=== PATIENT | male | born 1975 | race Caucasian/White ===

== ENCOUNTER 2016-08-24 11:12 | Emergency (ER) | payer MEDICAID ==
[2016-08-24] MEDS ORDERED: IPRATROPIUM/ALBUTEROL 3 ML NEB INH STA (13:39)
[2016-08-24] MEDS ORDERED: IPRATROPIUM/ALBUTEROL 3 ML NEB INH ONE (13:55)
== END 2016-08-24 15:25 | disposition home or self-care (01) ==
DX: J45.909 Unspecified asthma, uncomplicated (principal)
CPT/HCPCS: 87275; 87276; 93005; 93010; 94640; 99283; J7620

== ENCOUNTER 2017-07-03 15:02 | Emergency (ER) | payer MEDICAID ==
[2017-07-03] MEDS ORDERED: BENZONATATE 100 MG CAPSULE PO STA (15:57)
[2017-07-03] MEDS ORDERED: guaiFENesin/DEXTROMETHORPHAN 10 ML UDC PO STA (15:57)
[2017-07-03] MEDS ORDERED: DEXAMETHASONE 10 MG/ML VIAL PO STA (15:57)
--- NOTE | 2017-07-03 16:00 | ED Physician Documentation ---
History of Present Illness - Stated complaint Stated Complaint: FLU - Chief complaint Chief Complaint: Resp - Additonal information Additional information: hx from pt 42 male fairly healthy to ER for cough for 2 months describes waxing and waning sinus congestion, PND, cough worse with laying down , some int wheezing and generally feeling weak and lousy this most recent episode started 4 days ago and includes vomiting as well no travel Review of Systems Constitutional: denies: Fever, Chills Nose: reports: Congestion, Sinus pressure / pain Respiratory: reports: Cough Endocrine: denies: Easy bruising / bleeding Immunocompromised: denies: Immunocompromised PD PAST MEDICAL HISTORY - Past Medical History Cardiovascular: None Neuro: Seizure disorder Endocrine/Autoimmune: None GI: Other HEENT: Other Psych: Depression - Past Surgical History Past Surgical History: Yes General: Cholecystectomy - Present Medications Home Medications: Ambulatory Orders Medication Instructions Recorded Confirmed Albuterol Sulfate [Proair Hfa 2 puffs INH Q4H PRN #1 inhaler 07/03/17 Inhaler] Amox/Clav 875/125 [Augmentin] 1 each PO Q12H #20 tablet 07/03/17 Fluticasone [Flonase] 1 sprays RICA BID PRN #1 bottle 07/03/17 Ibuprofen 07/03/17 Trazodone HCl 100 mg PO 07/03/17 - Allergies Allergies/Adverse Reactions: Allergies Allergy/AdvReac Type Severity Reaction Status Date / Time No Known Drug Allergies Allergy Verified 07/03/17 15:15 - Social History Does the pt smoke?: No Smoking Status: Never smoker Does the pt drink ETOH?: Yes Does the pt have substance abuse?: Yes - Immunizations Immunizations are current?: Yes - POLST Patient has POLST: No PD ED PE NORMAL - Vitals Vital signs reviewed: Yes - General General: Alert and oriented X 3 - HEENT HEENT: PERRL, Pharynx benign, Other (+ sinus TTP s erythema or swelling). No: Ears normal (dull karuna) - Neck Neck: Supple, no meningeal sign - Cardiac Cardiac: RRR - Respiratory Respiratory: No respiratory distress, Other (dec and coarse, wheezes when coughing) - Derm Derm: Normal color - Extremities Extremities: No deformity, No edema - Neuro Neuro: Alert and oriented X 3 Results - Vitals Vitals: Vital Signs - 24 hr 07/03/17 07/03/17 15:13 16:37 Temperature 37.2 C 37.3 C Heart Rate 101 H 90 Respiratory 18 20 Rate Blood Pressure 121/86 H 116/75 O2 Saturation 96 96 Oxygen O2 Source Room air - Labs Labs: Laboratory Tests 07/03/17 16:21 Influenza A (Rapid) Negative Influenza B (Rapid) Negative Influenza Types A,B Ag - - Rads (name of study) CXR Radiology: See rad report (neg) PD MEDICAL DECISION MAKING - ED course ED course: given sx of sinus pressure and PND persisting 2+ months think reasonable to rx ab at this time Departure - Departure Disposition: Home, Self Care Clinical Impression: Sinusitis Qualifiers: Sinusitis location: unspecified location Chronicity: subacute Qualified Code(s) : J01.90 - Acute sinusitis, unspecified Condition: Good Instructions: ED Sinusitis Abx Tx, ED Reactive Airway Disease Follow-Up: Fernie Miller MD [Primary Care Provider] - Prescriptions: Albuterol Sulfate [Proair Hfa Inhaler] 2 puffs INH Q4H PRN #1 inhaler PRN Reason: Shortness Of Air/Wheezing Amox/Clav 875/125 [Augmentin] 1 each PO Q12H #20 tablet Fluticasone [Flonase] 1 sprays RICA BID PRN #1 bottle PRN Reason: congestion Comments: The xray did not show pneumonia The flu swabs were negativeI think your cough is due to a sinus infection with post nasal drainage Many sinus infections are viral but this has been going on so long I think it is reasonable to try antibiotics Also you need to use the decongestant nasal spray Consider trying a sinus irrigation system to flush out the sinuses And I refilled your inhaler
--- NOTE | 2017-07-03 16:29 | XRAY Report ---
EXAM: CHEST RADIOGRAPHY EXAM DATE: 07/03/2017 04:11 PM. CLINICAL HISTORY: Cough X 2 months. COMPARISON: Chest radiographs 06/16/2015. TECHNIQUE: 2 views. FINDINGS: Lungs/Pleura: No focal opacities evident. No pleural effusion. No pneumothorax. Normal volumes. Mediastinum: Heart and mediastinal contours are unremarkable. IMPRESSION: No evidence of acute thoracic process [facility] Referring Provider Line: [phone] SITE ID: [id number]
[2017-07-03 16:38] VITALS: BP 116/75
== END 2017-07-03 17:35 | disposition home or self-care (01) ==
LOC: ED 15:02
DX: J01.90 Acute sinusitis, unspecified (principal)
CPT/HCPCS: 71046; 87275; 87276; 99283; A9270

== ENCOUNTER 2017-10-15 12:24 | Emergency (ER) | payer OTHER, MEDICAID ==
[2017-10-15 12:33] VITALS: BP 140/86
[2017-10-15] MEDS ORDERED: TETANUS/DIPHTHERIA/PERTUSSIS 0.5 ML SYRINGE IM ONE (12:57)
--- NOTE | 2017-10-15 13:03 | ED Physician Documentation ---
PD HPI UPPER EXT INJURY - Stated complaint Stated Complaint: RT MID FINGER LAC - Chief complaint Chief Complaint: Ext Problem - History obtained from History obtained from: Patient - History of Present Illness Location: Right, Finger Type of injury: Laceration Where injury occurred: Work Timing - onset: Today Timing - details: Abrupt onset (broken glass) Review of Systems Constitutional: reports: Reviewed and negative Throat: reports: Reviewed and negative Cardiac: reports: Reviewed and negative PD PAST MEDICAL HISTORY - Past Medical History Past Medical History: Yes Cardiovascular: None Endocrine/Autoimmune: None GI: Other HEENT: Other Psych: Depression - Past Surgical History Past Surgical History: Yes General: Cholecystectomy - Present Medications Home Medications: Ambulatory Orders Medication Instructions Recorded Confirmed Albuterol Sulfate [Proair Hfa 2 puffs INH Q4H PRN #1 inhaler 07/03/17 Inhaler] Trazodone HCl 100 mg PO DAILY PRN 07/03/17 - Allergies Allergies/Adverse Reactions: Allergies Allergy/AdvReac Type Severity Reaction Status Date / Time No Known Drug Allergies Allergy Verified 10/15/17 12:33 - Social History Does the pt smoke?: No Smoking Status: Never smoker Does the pt drink ETOH?: Yes Does the pt have substance abuse?: Yes - Immunizations Immunizations are current?: Yes - POLST Patient has POLST: No PD ED PE NORMAL - Vitals Vital signs reviewed: Yes - General General: Alert and oriented X 3, No acute distress - Extremities Extremities: Other (On the ulnar side of the right middle finger, at the level of the tuft not involving the nailbed there is a 1 cm very shallow Laceration just into the dermis.) - Neuro Neuro: Alert and oriented X 3, Normal speech Results - Vitals Vitals: Vital Signs - 24 hr 10/15/17 12:29 Temperature 36.1 C L Heart Rate 75 Respiratory 16 Rate Blood Pressure 140/86 H O2 Saturation 97 Oxygen O2 Source Room air Procedures - Laceration (location) Right middle finger Length in cm: 1 Wound type: Linear, Superficial Skin layer closure: Dermabond Other: Tetanus booster given Complexity: Simple PD MEDICAL DECISION MAKING - Sepsis Event Vital Signs: Vital Signs - 24 hr 10/15/17 12:29 Temperature 36.1 C L Heart Rate 75 Respiratory 16 Rate Blood Pressure 140/86 H O2 Saturation 97 Oxygen O2 Source Room air Departure - Departure Disposition: 01 Home, Self Care Clinical Impression: Finger laceration Qualifiers: Encounter type: initial encounter Finger: middle finger Damage to nail status: without damage Foreign body presence: without foreign body Laterality: right Qualified Code(s): S61.212A - Laceration without foreign body of right middle finger without damage to nail, initial encounter Condition: Good Record reviewed to determine appropriate education?: Yes Instructions: ED Laceration Hand Comments: Your blood pressure was elevated today on check into the emergency department. This does not mean that you have hypertension, it is a common phenomenon to come to the emergency department and have elevated blood pressure. I recommend that you see your primary care physician within the week to have it rechecked when you are feeling better.
== END 2017-10-15 13:08 | disposition home or self-care (01) ==
LOC: ED 12:24
DX: S61.212A Laceration without foreign body of right middle finger without damage to nail, initial encounter (principal); R03.0 Elevated blood-pressure reading, without diagnosis of hypertension
CPT/HCPCS: 1040M; 12001; 90471; 90715; 99282

== ENCOUNTER 2018-07-12 10:21 | Emergency (ER) | payer MEDICAID ==
[2018-07-12 10:30] VITALS: BP 116/90
--- NOTE | 2018-07-12 11:40 | ED Physician Documentation ---
PD HPI URI - Stated complaint Stated Complaint: FLU LIKE SX - Chief complaint Chief Complaint: General - History obtained from History obtained from: Patient - History of Present Illness Timing - onset: How many days ago (5) Timing duration: Days (5) Timing details: Gradual onset, Still present Associated symptoms: Fever, Chills, Nasal congestion, Rhinorrhea, Sinus pain, Sore throat, Productive cough, Dyspnea Contributing factors: Sick contact Improves by: Rest, Medication Worsened by: Activity Similar symptoms before: Diagnosis (bronchitis) Recently seen: Not recently seen - Additional information Additional information: Previously well 43-year-old male has developed a cough and congestion with fever about 5 days ago. He states the symptoms came on rapidly he thought he had the flu. He was able to go back to work and then he got sick again worse last night and today he is having trouble coughing producing a lot of phlegm and has some shortness of breath with wheezing. He has used an inhaler previously. Review of Systems Constitutional: reports: Fever, Chills, Myalgias, Fatigue Eyes: denies: Decreased vision Ears: denies: Ear pain Nose: reports: Rhinorrhea / runny nose, Congestion Throat: reports: Sore throat Cardiac: denies: Chest pain / pressure, Palpitations Respiratory: reports: Dyspnea, Cough, Wheezing GI: denies: Abdominal Pain, Nausea, Vomiting : denies: Dysuria PD PAST MEDICAL HISTORY - Past Medical History Cardiovascular: None Endocrine/Autoimmune: None GI: Other HEENT: Other Psych: Depression - Past Surgical History Past Surgical History: Yes General: Cholecystectomy - Present Medications Home Medications: Ambulatory Orders Medication Instructions Recorded Confirmed Albuterol Sulfate [Proair Hfa 2 puffs INH Q4H PRN #1 inhaler 07/03/17 Inhaler] Trazodone HCl 100 mg PO DAILY PRN 07/03/17 Albuterol Sulf [Ventolin Hfa 1 - 2 puffs INH Q4HR PRN #1 inhaler 07/12/18 Inhaler] Amox/Clav 875/125 [Augmentin] 1 each PO Q12H #20 tablet 07/12/18 - Allergies Allergies/Adverse Reactions: Allergies Allergy/AdvReac Type Severity Reaction Status Date / Time No Known Drug Allergies Allergy Verified 10/15/17 12:33 - Social History Does the pt smoke?: No Smoking Status: Never smoker Does the pt drink ETOH?: Yes Does the pt have substance abuse?: Yes - Immunizations Immunizations are current?: Yes - POLST Patient has POLST: No PD ED PE NORMAL - Vitals Vital signs reviewed: Yes (tachy and hypertensive mild diastolic ) - General General: Alert and oriented X 3, No acute distress, Well developed/nourished - HEENT HEENT: Atraumatic, PERRL, EOMI, Other (both TM's are inflamed centrally with the right more involved than the left. ) - Neck Neck: Supple, no meningeal sign, No bony TTP - Cardiac Cardiac: RRR, No murmur - Respiratory Respiratory: No respiratory distress, Other (dimished breath sounds bilaterally ) - Abdomen Abdomen: Soft, Non tender - Back Back: No CVA TTP, No spinal TTP - Derm Derm: Normal color, Warm and dry, No rash - Extremities Extremities: No deformity, No edema - Neuro Neuro: Alert and oriented X 3, social worker masters 2-12 intact, No motor deficit, No sensory deficit, Normal speech Eye Opening: Spontaneous Motor: Obeys Commands Verbal: Oriented GCS Score: 15 - Psych Psych: Normal mood, Normal affect Results - Vitals Vitals: Vital Signs - 24 hr 07/12/18 10:26 Temperature 36.7 C Heart Rate 102 H Respiratory 16 Rate Blood Pressure 116/90 H O2 Saturation 96 Oxygen O2 Source Room air - Labs Labs: Laboratory Tests 07/12/18 10:32 Influenza A (Rapid) Negative Influenza B (Rapid) Negative PD MEDICAL DECISION MAKING - ED course Complexity details: considered differential, d/w patient ED course: 43-year-old male with a history of illness that appears to be bimodal likely had influenza his influenza screen now is negative he does have secondary infection which appears to be otitis media. He is administered dexamethasone 10 mg orally we will place him on some Augmentin and give him an inhaler. Departure - Departure Disposition: 01 Home, Self Care Clinical Impression: Otitis media Qualifiers: Otitis media type: suppurative Chronicity: acute Laterality: bilateral Recurrence: not specified as recurrent Spontaneous tympanic membrane rupture: without spontaneous rupture Qualified Code(s): H66.003 - Acute suppurative otitis media without spontaneous rupture of ear drum, bilateral Condition: Stable Instructions: ED Otitis Media Acute Adult Follow-Up: Donavan Ambriz PA-C [Primary Care Provider] - Prescriptions: Albuterol Sulf [Ventolin Hfa Inhaler] 1 - 2 puffs INH Q4HR PRN #1 inhaler PRN Reason: Shortness Of Air/Wheezing Amox/Clav 875/125 [Augmentin] 1 each PO Q12H #20 tablet Forms: Activity restrictions
== END 2018-07-12 11:50 | disposition home or self-care (01) ==
LOC: ED 10:21
DX: H66.003 Acute suppurative otitis media without spontaneous rupture of ear drum, bilateral (principal)
CPT/HCPCS: 87275; 87276; 99283

== ENCOUNTER 2020-04-28 05:07 | Emergency (ER) | payer SELFPAY ==
[2020-04-28 05:36] VITALS: BP 144/84
--- NOTE | 2020-04-28 07:18 | ED Physician Documentation ---
PD HPI LOWER EXT INJURY - Stated complaint Stated Complaint: RT ANKLE INJ - Chief complaint Chief Complaint: Trauma Ext - History obtained from History obtained from: Patient - Additional information Additional information: Patient comes emergency department for chief complaint of L foot and ankle pain and swelling after a twisting injury yesterday. Patient states that he has injured this foot and ankle many times and was hoping that he would feel better today but he felt worse. He states that when he tried to walk on his left lower extremity, it was too painful to bear weight. Patient denies any other injuries. No other complaints at this time. Review of Systems Ten Systems: 10 systems reviewed and negative Constitutional: reports: Reviewed and negative Eyes: reports: Reviewed and negative Ears: reports: Reviewed and negative Nose: reports: Reviewed and negative Throat: reports: Reviewed and negative Cardiac: reports: Reviewed and negative Respiratory: reports: Reviewed and negative GI: reports: Reviewed and negative : reports: Reviewed and negative Skin: reports: Reviewed and negative Musculoskeletal: reports: Joint pain, Joint swelling, Pain with weight bearing Neurologic: reports: Reviewed and negative Psychiatric: reports: Reviewed and negative Endocrine: reports: Reviewed and negative Immunocompromised: reports: Reviewed and negative PD PAST MEDICAL HISTORY - Past Medical History Past Medical History: Yes Cardiovascular: None Endocrine/Autoimmune: None GI: Other HEENT: Other Psych: Depression - Past Surgical History Past Surgical History: Yes General: Cholecystectomy - Present Medications Home Medications: Ambulatory Orders Medication Instructions Recorded Confirmed HYDROcod/ACETAM 5/325 [[place] 5/325] 1 - 2 ea PO Q6H PRN #15 tablet 04/28/20 - Allergies Allergies/Adverse Reactions: Allergies Allergy/AdvReac Type Severity Reaction Status Date / Time No Known Drug Allergies Allergy Verified 04/28/20 05:34 - Social History Does the pt smoke?: No Smoking Status: Never smoker Does the pt drink ETOH?: Yes Does the pt have substance abuse?: Yes - Immunizations Immunizations are current?: Yes - POLST Patient has POLST: No PD ED PE NORMAL - Vitals Vital signs reviewed: Yes - General General: Alert and oriented X 3, No acute distress, Other (Moderately obese, tall man in no apparent distress) - HEENT HEENT: Atraumatic, PERRL, EOMI, Moist mucous membranes - Neck Neck: Supple, no meningeal sign - Cardiac Cardiac: Strong equal pulses - Respiratory Respiratory: No respiratory distress - Derm Derm: Warm and dry - Extremities Extremities: No deformity, Other (Mild edema over the distal lateral malleolus extending over the talofibular ligament area and the proximal fifth metatarsal of the left foot. Moderate tenderness to palpation over the same area. No deformity. No medial tenderness or swelling.) - Neuro Neuro: Alert and oriented X 3 - Psych Psych: Normal mood, Normal affect Results - Vitals Vitals: Vital Signs - 24 hr 04/28/20 05:14 Temperature 36.6 C Heart Rate 93 Respiratory 20 Rate Blood Pressure 144/84 H O2 Saturation 98 Oxygen O2 Source Room air - Rads (name of study) L ankle XR Radiology: Final report received, EMP read indepedently, See rad report L foot XR Radiology: EMP read indepedently, See rad report PD MEDICAL DECISION MAKING - ED course Complexity details: reviewed results, re-evaluated patient, considered differential, d/w patient ED course: Patient was worked up with x-rays of the ankle and foot. The ankle x-ray was read as negative by the radiologist. The official reading of the foot x-ray is pending at the time of this dictation. However, no obvious fracture was noted. Patient does have a bony fragment that appears to be well calcified with rounded edges at the proximal end of his fifth metatarsal. Given the patient's stated history of multiple injuries and fractures to this area, this is most likely related to old injuries and does not appear acute. The patient has been placed in a postoperative shoe and given a pair of crutches. We have discussed that he should remain nonweightbearing until his foot is feeling better. I given him a work note. He is declined any medication beyond ibuprofen and Tylenol. We have discussed icing and elevating and indications for follow-up. We have also discussed the usual indications for return. Departure - Departure Disposition: 01 Home, Self Care Clinical Impression: Foot sprain Qualifiers: Encounter type: initial encounter Laterality: left Qualified Code(s): S93.602A - Unspecified sprain of left foot, initial encounter Condition: Stable Instructions: ED Sprain Foot Prescriptions: HYDROcod/ACETAM 5/325 [[place] 5/325] 1 - 2 ea PO Q6H PRN #15 tablet PRN Reason: Pain Comments: Your ankle x-ray looks good. Your foot x-ray shows what appears to be an old break that has since calcified and rounded over. In his left a small, free- floating piece of bone, but this does not appear to be freshly broken. Most likely, you have sprained your foot/ankle. You may use the crutches as needed and the cast shoe as needed, as well. You may take ibuprofen and Tylenol as needed for pain. If you need something stronger, please use the medication prescribed in place of the Tylenol. You should prop your foot up and use ice to help with the swelling. Please follow-up with your primary care physician if you are not feeling noticeably better in the next couple of weeks. Forms: Activity restrictions
--- NOTE | 2020-04-28 08:16 | XRAY Report ---
PROCEDURE: Foot 3 View LT INDICATIONS: injury/pain/swelling TECHNIQUE: 3 views of the foot were acquired. COMPARISON: 12/02/2012 ankle plain film on the left reviewed. FINDINGS: Bones: No fractures or dislocations. There is a large accessory ossicle at the lateral base of the fifth metatarsal bone, present on prior chest plain film faintly visualized on the lateral view in [place] 2013 No suspicious bony lesions. Soft tissues: No tibiotalar joint effusion. Achilles tendon appears normal. IMPRESSION: No acute trauma found. Largest sensory ossicle lateral base of the fifth metatarsal bone. Reviewed by: Edward Kohler MD on 04/28/2020 8:15 AM PST Approved by: Edward Kohler MD on 04/28/2020 8:15 AM PST Station ID: [id number]
--- NOTE | 2020-04-28 08:18 | XRAY Report ---
PROCEDURE: Ankle 3 View LT INDICATIONS: injury/pain TECHNIQUE: 3 views of the ankle were acquired. COMPARISON: 12/02/2012 ankle plain film. FINDINGS: Bones: No fractures or dislocations. Ankle mortise is normally aligned. No suspicious bony lesions . Soft tissues: No tibiotalar joint effusion. Achilles tendon appears normal. IMPRESSION: No acute trauma found. Accessory ossicle as discussed. Reviewed by: Edward Kohler MD on 04/28/2020 8:16 AM [facility] Approved by: Edward Kohler MD on 04/28/2020 8:16 AM [facility] Station ID: [id number]
== END 2020-04-28 07:57 | disposition home or self-care (01) ==
LOC: ED 05:07
DX: S93.602A Unspecified sprain of left foot, initial encounter (principal); X50.1XXA Overexertion from prolonged static or awkward postures, initial encounter; Y93.E9 Activity, other interior property and clothing maintenance
CPT/HCPCS: 99283; 99284

== ENCOUNTER 2020-11-17 12:03 | Emergency (ER) | payer SELFPAY ==
--- NOTE | 2020-11-17 13:38 | XRAY Report ---
PROCEDURE: Chest 2 View X-Ray INDICATIONS: cough fever TECHNIQUE: 2 view(s) of the chest. COMPARISON: None. FINDINGS: Surgical changes and devices: None. Lungs and pleura: No pleural effusions or pneumothorax. Lungs are clear. Mediastinum: Mediastinal contours are normal. Heart size is normal. Bones and chest wall: No suspicious bony abnormalities. Soft tissues appear unremarkable. IMPRESSION: No acute cardiopulmonary disease process. Reviewed by: Celina Tay MD, PhD on 11/17/2020 1:37 PM PDT Approved by: Celina Tay MD, PhD on 11/17/2020 1:37 PM PDT Station ID: [id number]
[2020-11-17] MEDS ORDERED: SODIUM CHLORIDE 0.9% 1,000 ML IV STA (14:13)
--- NOTE | 2020-11-17 14:16 | ED Physician Documentation ---
History of Present Illness - Stated complaint Stated Complaint: FEVER,BODY ACHES - Chief complaint Chief Complaint: Resp - History obtained from History obtained from: Patient - Additonal information Additional information: Patient comes emergency department chief complaint of sore throat, fever, dry cough, and nasal congestion, with body aches for the last 3 days. Patient states that he began to notice sore throat 3 days ago, and that this progressed to fever which has been as high as 103.6 at home. Patient states that other family members at home are sick with something similar, though he does not know if they have had fevers. Patient states he had a tibdit immunization back in September. Patient denies nausea vomiting. No abdominal pain. No diarrhea. No dysuria or back pain. No other complaints at this time. Review of Systems Ten Systems: 10 systems reviewed and negative Constitutional: reports: Fever, Chills, Myalgias, Fatigue Eyes: reports: Reviewed and negative Ears: reports: Reviewed and negative Nose: reports: Rhinorrhea / runny nose, Congestion Throat: reports: Sore throat Cardiac: reports: Reviewed and negative Respiratory: reports: Cough GI: reports: Reviewed and negative : reports: Reviewed and negative Skin: reports: Reviewed and negative Musculoskeletal: reports: Reviewed and negative Neurologic: reports: Reviewed and negative Psychiatric: reports: Reviewed and negative Endocrine: reports: Reviewed and negative Immunocompromised: reports: Reviewed and negative PD PAST MEDICAL HISTORY - Past Medical History Cardiovascular: None Endocrine/Autoimmune: None GI: Other HEENT: Other Psych: Depression - Past Surgical History Past Surgical History: Yes General: Cholecystectomy - Present Medications Home Medications: Ambulatory Orders Medication Instructions Recorded Confirmed HYDROcod/ACETAM 5/325 [[place] 5/325] 1 - 2 ea PO Q6H PRN #15 tablet 04/28/20 - Allergies Allergies/Adverse Reactions: Allergies Allergy/AdvReac Type Severity Reaction Status Date / Time No Known Drug Allergies Allergy Verified 11/17/20 12:32 - Social History Does the pt smoke?: No Smoking Status: Never smoker Does the pt drink ETOH?: Yes Does the pt have substance abuse?: Yes - Immunizations Immunizations are current?: Yes - POLST Patient has POLST: No PD ED PE NORMAL - Vitals Vital signs reviewed: Yes - General General: Alert and oriented X 3, No acute distress, Well developed/nourished, Other (Morbidly obese) - HEENT HEENT: Atraumatic, PERRL, EOMI, Moist mucous membranes - Neck Neck: Supple, no meningeal sign - Cardiac Cardiac: RRR, No murmur - Respiratory Respiratory: No respiratory distress, Clear bilaterally - Abdomen Abdomen: Soft, Non tender, Non distended - Derm Derm: Normal color, Warm and dry, No rash - Extremities Extremities: No deformity, No edema - Neuro Neuro: Alert and oriented X 3, hygiene coordinator 2-12 intact, Normal speech, Other (Grossly normal.) - Psych Psych: Normal mood, Normal affect Results - Vitals Vitals: Vital Signs - 24 hr 11/17/20 11/17/20 12:27 16:19 Temperature 36.7 C Heart Rate 93 75 Respiratory 18 16 Rate Blood Pressure 128/84 H 130/81 H O2 Saturation 97 97 Oxygen O2 Source Room air - Labs Labs: Laboratory Tests 11/17/20 11/17/20 11/17/20 14:22 14:22 14:35 WBC 5.3 RBC 5.24 Hgb 15.8 Hct 47.8 MCV 91.2 MCH 30.2 MCHC 33.1 RDW 13.4 Plt Count 243 MPV 9.6 Neut # (Auto) 2.8 Lymph # (Auto) 1.8 [place] # (Auto) 0.6 Eos # (Auto) 0.1 Baso # (Auto) 0.1 Absolute Nucleated RBC 0.00 Nucleated RBC % 0.0 Sodium 138 Potassium 3.3 L Chloride 101 Carbon Dioxide 27 Anion Gap 10.0 BUN 16 Creatinine 1.1 Estimated GFR (MDRD) 72 L Glucose 141 H Calcium 9.0 Total Bilirubin 0.9 AST 71 H ALT 85 H Alkaline Phosphatase 60 Total Protein 8.1 Albumin 4.7 Globulin 3.4 Albumin/Globulin Ratio 1.4 Lipase 27 Nasal Adenovirus (PCR) NOT DETECTED Nasal B. parapertussis DNA (PCR) NOT DETECTED Nasal Coronavir 229E PCR NOT DETECTED Nasal Coronavir HKU1 PCR NOT DETECTED Nasal Coronavir NL63 PCR NOT DETECTED Nasal Coronavir OC43 PCR NOT DETECTED Nasal Enterovir/Rhinovir PCR NOT DETECTED Nasal Influenza B PCR NOT DETECTED Nasal Influenza A PCR NOT DETECTED Nasal Parainfluen 1 PCR NOT DETECTED Nasal Parainfluen 2 PCR NOT DETECTED Nasal Parainfluen 3 PCR NOT DETECTED Nasal Parainfluen 4 PCR NOT DETECTED Nasal RSV (PCR) NOT DETECTED Nasal B.pertussis DNA PCR NOT DETECTED Nasal C.pneumoniae (PCR) NOT DETECTED Teddy Human Metapneumo PCR NOT DETECTED Nasal M.pneumoniae (PCR) NOT DETECTED Nasal SARS-CoV-2 (PCR) DETECTED A - Rads (name of study) cxr Radiology: Final report received, EMP read indepedently, See rad report (neg) PD MEDICAL DECISION MAKING - ED course Complexity details: reviewed results, re-evaluated patient, considered differential, d/w patient ED course: Patient was worked up with chest x-ray, labs, blood cultures, and respiratory PCR panel. Patient was found to be positive for Covid. He was treated with a dose of Regeneron IV and we have discussed the need for every when he lives with to quarantine and get tested. I discussed with the patient that he will need to take a couple weeks off work and quarantine until then or until his symptoms have resolved. We have discussed home management of symptoms and the usual indications for return. Departure - Departure Disposition: 01 Home, Self Care Clinical Impression: COVID Condition: Stable Instructions: COVID-19 [facility] Comments: Your viral panel came back positive for Covid. You have been given IV fluids as well as an IV infusion of monoclonal antibodies to help fight the virus. There is a small chance of still getting sick with Covid, even after getting vaccinated and with the [employer] vaccine, there is a little bit larger chance than with some of the other vaccines. Most likely, you will not have as serious of a course of illness as you may have without the vaccine. However, if you begin to feel increasingly ill, especially if you are feeling increasingly short of breath, then you should seek medical reevaluation right away. Otherwise drink plenty of fluids and take ibuprofen and Tylenol as needed for your fever. You should quarantine for 2 weeks or until you are feeling better. Your family members who live with you will need to quarantine for 7 days at least. If after this, they are still negative for Covid, then they may proceed with life as usual, as long as they do not have symptoms. Forms: Activity restrictions Discharge Date/Time: 11/17/20 16:55
[2020-11-17 14:34] LABS: BASOPHILS # (AUTO) 0.1 10^3/uL (0.0-0.1); BASOPHILS % (AUTO) 1.1 %; EOSINOPHILS # (AUTO) 0.1 10^3/uL (0.0-0.7); EOSINOPHILS % (AUTO) 1.1 %; HCT - HEMATOCRIT 47.8 % (42.0-52.0); HGB - HEMOGLOBIN 15.8 g/dL (14.0-18.0); LYMPHOCYTES # (AUTO) 1.8 10^3/uL (1.5-3.5); LYMPHOCYTES % (AUTO) 33.8 %; MEAN CORPUSCULAR HEMOGLOBIN 30.2 pg (27.0-31.0); MEAN CORPUSCULAR HGB CONC 33.1 g/dL (32.0-36.0); MEAN CORPUSCULAR VOLUME 91.2 fL (80.0-94.0); MEAN PLATELET VOLUME 9.6 fL (7.4-11.4); MONOCYTES # (AUTO) 0.6 10^3/uL (0.0-1.0); MONOCYTES % (AUTO) 11.6 %; NEUTROPHILS # (AUTO) 2.8 10^3/uL (1.5-6.6); NEUTROPHILS % (AUTO) 52.2 %; PLT - PLATELET COUNT 243 10^3/uL (130-450); RED BLOOD COUNT 5.24 10^6/uL (4.70-6.10); RED CELL DISTRIBUTION WIDTH 13.4 % (12.0-15.0); WHITE BLOOD COUNT 5.3 x10^3/uL (4.8-10.8)
[2020-11-17 14:45] LABS: ALBUMIN 4.7 g/dL (3.2-5.5); ALBUMIN/GLOBULIN RATIO 1.4 (1.0-2.2); BILIRUBIN,TOTAL 0.9 mg/dL (0.2-1.0); CREATININE 1.1 mg/dL (0.6-1.2); POTASSIUM 3.3 mmol/L (3.5-5.0); TOTAL PROTEIN 8.1 g/dL (6.7-8.2)
[2020-11-17 15:31] LABS: CORONAVIRUS 229E-RESP PCR NOT DETECTED; CORONAVIRUS HKU1-RESP PCR NOT DETECTED; CORONAVIRUS NL63-RESP PCR NOT DETECTED; CORONAVIRUS OC43-RESP PCR NOT DETECTED
[2020-11-17 15:32] LABS: B. PARAPERTUSSIS- RESP PCR PAN NOT DETECTED; B. PERTUSSIS- RESP PCR PANEL NOT DETECTED; C. PNEUMONIAE- RESP PCR PANEL NOT DETECTED; HUMAN METAPNEUMOVIRUS NOT DETECTED; INFLUENZA A- RESP PCR PANEL NOT DETECTED; INFLUENZA B - RESP PCR PANEL NOT DETECTED; M. PNEUMONIAE- RESP PCR PANEL NOT DETECTED; PARAINFLUENZA VIRUS 1 NOT DETECTED; PARAINFLUENZA VIRUS 2 NOT DETECTED; PARAINFLUENZA VIRUS 3 NOT DETECTED; PARAINFLUENZA VIRUS 4 NOT DETECTED; RHINOVIRUS/ENTEROVIRUS NOT DETECTED; RSV- RESP PCR PANEL NOT DETECTED; SARS-CoV-2 -RESP PCR PANEL DETECTED
[2020-11-17] MEDS ORDERED: [UNRECOGNIZED DRUG - OTHER] IV STA (15:43)
[2020-11-17 16:20] VITALS: BP 130/81
== END 2020-11-17 16:55 | disposition home or self-care (01) ==
LOC: ED 12:03
DX: U07.1 COVID-19 (principal); Z23 Encounter for immunization
CPT/HCPCS: 0202U; 36415; 71046; 80053; 83690; 85025; 87040; 99284; J7040; M0243; Q0243

== ENCOUNTER 2021-02-04 08:58 | Emergency (ER) | payer OTHER ==
--- NOTE | 2021-02-04 09:20 | ED Physician Documentation ---
PD HPI HEADACHE - Stated complaint Stated Complaint: LOSS OF VISION IN R EYE/HEADACHE - Chief complaint Chief Complaint: Neuro - History obtained from History obtained from: Patient - History of Present Illness Timing - onset: Last night Timing - onset during: Rest Timing - duration: Hours (10) Timing - details: Gradual onset, Still present Worst headache ever?: No: Worst headache ever? (onset headache right temporal and behind eye last night that persists into today. Was able to sleep with some stirring during night. Awoke with headache still this morning and noted right eye vision to be diminished/blurred (can see image and whiteness). No loss of vision (blackened) per se.) Location: Right Quality: Throbbing, Aching, Tightness Associated symptoms: Nausea, Vision changes (right eye diminished (images vaguely and whitish coloring, with light sensitivity).). No: Fever, Stiff neck, Vomiting Worsened by: Light Contributing factors: No: Anticoagulated, Recent illness, Trauma Similar symptoms before: Diagnosis (has had similar headaches without visual changes about once every 2 months the past year or so. Presumed migraines but no formal Dx nor evaluation.) Recently seen: Not recently seen Review of Systems Constitutional: denies: Fever, Chills Eyes: reports: Decreased vision, Photophobia. denies: Loss of vision, Irritation Nose: denies: Rhinorrhea / runny nose, Congestion Throat: denies: Sore throat Respiratory: denies: Cough GI: denies: Abdominal Pain, Nausea, Vomiting Skin: denies: Rash, Lesions Neurologic: reports: Headache. denies: Focal weakness, Numbness, Altered mental status, Head injury PD PAST MEDICAL HISTORY - Past Medical History Cardiovascular: None Neuro: Migraines Endocrine/Autoimmune: None GI: Other HEENT: Other Psych: Depression - Past Surgical History Past Surgical History: Yes General: Cholecystectomy - Present Medications Home Medications: Ambulatory Orders Medication Instructions Recorded Confirmed SUMAtriptan [Imitrex] 25 mg PO Q6H PRN #5 tablet 02/04/21 dexAMETHasone [Decadron] 4 mg PO DAILY #5 tablet 02/04/21 - Allergies Allergies/Adverse Reactions: Allergies Allergy/AdvReac Type Severity Reaction Status Date / Time No Known Drug Allergies Allergy Verified 02/04/21 09:01 - Social History Does the pt smoke?: No Smoking Status: Never smoker Does the pt drink ETOH?: Yes Does the pt have substance abuse?: Yes - Immunizations Immunizations are current?: Yes - POLST Patient has POLST: No PD ED PE NORMAL - Vitals Vital signs reviewed: Yes - General General: Alert and oriented X 3, No acute distress, Well developed/nourished - HEENT HEENT: PERRL, EOMI, Moist mucous membranes, Pharynx benign, Other (IOP is 16, normal range. Fundal exam is normal. anterior and posterior chambers are clear. ) - Neck Neck: Supple, no meningeal sign, No adenopathy - Cardiac Cardiac: RRR, No murmur - Respiratory Respiratory: Clear bilaterally - Derm Derm: Normal color, Warm and dry, No rash - Neuro Neuro: Alert and oriented X 3, talent acquisition partner 2-12 intact, No motor deficit, No sensory deficit, Normal speech, Other Results - Vitals Vitals: Vital Signs - 24 hr 02/04/21 02/04/21 02/04/21 09:03 11:43 12:10 Temperature 36.1 C L 36.9 C Heart Rate 80 74 78 Respiratory 18 20 14 Rate Blood Pressure 128/86 H 138/90 H 124/83 H O2 Saturation 96 98 98 Oxygen O2 Source Room air - Labs Labs: Laboratory Tests 02/04/21 02/04/21 02/04/21 10:08 10:08 10:08 WBC 5.7 RBC 4.97 Hgb 15.5 Hct 45.2 MCV 90.9 MCH 31.2 H MCHC 34.3 RDW 13.2 Plt Count 286 MPV 9.1 Neut # (Auto) 2.6 Lymph # (Auto) 2.2 [place] # (Auto) 0.4 Eos # (Auto) 0.3 Baso # (Auto) 0.1 Absolute Nucleated RBC 0.00 Nucleated RBC % 0.0 ESR 4 Sodium 142 Potassium 3.8 Chloride 109 Carbon Dioxide 25 Anion Gap 8.0 BUN 15 Creatinine 0.8 Estimated GFR (MDRD) 105 Glucose 143 H Calcium 9.5 Total Bilirubin 0.8 AST 35 ALT 44 Alkaline Phosphatase 68 Total Protein 7.5 Albumin 4.4 Globulin 3.1 Albumin/Globulin Ratio 1.4 Lipase 29 - Rads (name of study) head CT Radiology: Prelim report reviewed (normal), See rad report PD MEDICAL DECISION MAKING - ED course Complexity details: reviewed results, re-evaluated patient (headache much better and vision mostly cleared with IV fluids, toradol, compazine targeting migraine.), considered differential (seems likely complex migraine. Consider ICH, mass effect, eye process such as acute glaucoma. ), d/w patient Departure - Departure Disposition: 01 Home, Self Care Clinical Impression: Right-sided headache, Visual changes Migraine Qualifiers: Migraine type: unspecified Status migrainosus presence: without status migrainosus Intractability: not intractable Qualified Code(s): G43.909 - Migraine, unspecified, not intractable, without status migrainosus Condition: Stable Record reviewed to determine appropriate education?: Yes Instructions: ED Headache Migraine Prescriptions: dexAMETHasone [Decadron] 4 mg PO DAILY #5 tablet SUMAtriptan [Imitrex] 25 mg PO Q6H PRN #5 tablet PRN Reason: Migraine Comments: Like a complex migraine with vision changes. Home and rest today and stay well- hydrated. Follow-up with your primary care regarding any further medications or evaluation should you have frequent migraines in the future. If you get a subsequent migraine, you can try combination of ibuprofen along with ondansetron and a migraine medicine called sumatriptan. I wrote prescriptions for these for you to try. Discharge Date/Time: 02/04/21 12:12
[2021-02-04] MEDS ORDERED: SODIUM CHLORIDE 0.9% 1,000 ML IV STA (09:55)
[2021-02-04] MEDS ORDERED: PROCHLORPERAZINE 10 MG/2 ML VIAL IVP STA (09:55)
[2021-02-04] MEDS ORDERED: KETOROLAC 30 MG/ML VIAL IVP STA (09:55)
[2021-02-04 10:16] LABS: BASOPHILS # (AUTO) 0.1 10^3/uL (0.0-0.1); BASOPHILS % (AUTO) 1.2 %; EOSINOPHILS # (AUTO) 0.3 10^3/uL (0.0-0.7); EOSINOPHILS % (AUTO) 5.8 %; HCT - HEMATOCRIT 45.2 % (42.0-52.0); HGB - HEMOGLOBIN 15.5 g/dL (14.0-18.0); LYMPHOCYTES # (AUTO) 2.2 10^3/uL (1.5-3.5); LYMPHOCYTES % (AUTO) 39.4 %; MEAN CORPUSCULAR HEMOGLOBIN 31.2 pg (27.0-31.0); MEAN CORPUSCULAR HGB CONC 34.3 g/dL (32.0-36.0); MEAN CORPUSCULAR VOLUME 90.9 fL (80.0-94.0); MEAN PLATELET VOLUME 9.1 fL (7.4-11.4); MONOCYTES # (AUTO) 0.4 10^3/uL (0.0-1.0); MONOCYTES % (AUTO) 7.4 %; NEUTROPHILS # (AUTO) 2.6 10^3/uL (1.5-6.6); PLT - PLATELET COUNT 286 10^3/uL (130-450); RED BLOOD COUNT 4.97 10^6/uL (4.70-6.10); RED CELL DISTRIBUTION WIDTH 13.2 % (12.0-15.0); WHITE BLOOD COUNT 5.7 x10^3/uL (4.8-10.8)
[2021-02-04 10:30] LABS: ALBUMIN 4.4 g/dL (3.2-5.5); ALBUMIN/GLOBULIN RATIO 1.4 (1.0-2.2); BILIRUBIN,TOTAL 0.8 mg/dL (0.2-1.0); CALCIUM 9.5 mg/dL (8.5-10.3); CREATININE 0.8 mg/dL (0.6-1.2); POTASSIUM 3.8 mmol/L (3.5-5.0); TOTAL PROTEIN 7.5 g/dL (6.7-8.2)
--- NOTE | 2021-02-04 11:03 | CT Report ---
PROCEDURE: HEAD WO INDICATIONS: right headache and visual change TECHNIQUE: Noncontrast 4.5 mm thick angled axial sections acquired from the foramen magnum to the vertex. For r adiation dose reduction, the following was used: automated exposure control, adjustment of mA and/or kV according to patient size. COMPARISON: None. FINDINGS: Image quality: Excellent. CSF spaces: Basal cisterns are patent. No extra-axial fluid collections. Ventricles are normal in size and shape. Brain: No midline shift. No intracranial masses or hemorrhage. Lawson-white matter interface is norm al. Skull and face: Calvarium and visualized facial bones are intact, without suspicious lesions. Sinuses: Visualized sinuses and mastoids are clear. IMPRESSION: 1. No acute intracranial process. Reviewed by: Kaitlyn Wynne MD on 02/04/2021 11:02 AM PDT Approved by: Kaitlyn Wynne MD on 02/04/2021 11:02 AM PDT Station ID: [id number]
[2021-02-04 12:12] VITALS: BP 124/83
== END 2021-02-04 12:12 | disposition home or self-care (01) ==
LOC: ED 08:58
DX: G43.909 Migraine, unspecified, not intractable, without status migrainosus (principal); H53.141 Visual discomfort, right eye
CPT/HCPCS: 36415; 80053; 83690; 85025; 85651; 96374; 99284

== ENCOUNTER 2021-03-17 08:44 | Emergency (ER) | payer OTHER ==
--- NOTE | 2021-03-17 09:16 | ED Physician Documentation ---
History of Present Illness - Stated complaint Stated Complaint: BACK PX - Chief complaint Chief Complaint: Back Pain - History obtained from History obtained from: Patient - History of Present Illness Timing: How many days ago (3) Pain level max: 8 Pain level now: 7 - Additonal information Additional information: Patient is a 46-year-old male with low back pain. Ongoing for the past 3 days. It started when he stepped out of his truck and felt a sharp pain across his back. Worse with movement, better with rest. Took Motrin without relief yesterday. No numbness or tingling. No loss of bowel or bladder control. No fevers. No chills. Review of Systems Constitutional: denies: Fever, Chills Respiratory: denies: Cough GI: denies: Abdominal Pain, Nausea, Vomiting, Diarrhea : denies: Dysuria Skin: denies: Rash Musculoskeletal: denies: Neck pain Neurologic: denies: Headache PD PAST MEDICAL HISTORY - Past Medical History Cardiovascular: None Respiratory: None Neuro: Migraines Endocrine/Autoimmune: None GI: Other : None HEENT: Other Psych: Depression Musculoskeletal: None Derm: None - Past Surgical History Past Surgical History: Yes General: Cholecystectomy - Present Medications Home Medications: Ambulatory Orders Medication Instructions Recorded Confirmed HYDROcod/ACETAM 5/325 [[place] 5/325] 1 - 2 ea PO Q6H PRN #14 tablet 03/17/21 Meloxicam [Mobic] 15 mg PO DAILY PRN #20 tablet 03/17/21 methocarbamoL [Robaxin] 500 mg PO Q6H PRN #20 tablet 03/17/21 - Allergies Allergies/Adverse Reactions: Allergies Allergy/AdvReac Type Severity Reaction Status Date / Time No Known Drug Allergies Allergy Verified 03/17/21 08:55 - Social History Does the pt smoke?: No Smoking Status: Never smoker Does the pt drink ETOH?: Yes Does the pt have substance abuse?: Yes - Immunizations Immunizations are current?: Yes - POLST Patient has POLST: No PD ED PE NORMAL - Vitals Vital signs reviewed: Yes - General General: Alert and oriented X 3, No acute distress - HEENT HEENT: Moist mucous membranes - Neck Neck: Supple, no meningeal sign - Cardiac Cardiac: RRR - Respiratory Respiratory: No respiratory distress, Clear bilaterally - Abdomen Abdomen: Soft, Non tender, Non distended - Back Back: No spinal TTP (No midline tenderness to palpation. No step-off or deformity. Paraspinal spasm bilateral lower lumbar.) - Derm Derm: Warm and dry - Extremities Extremities: No edema, No calf tenderness / cord - Neuro Neuro: Alert and oriented X 3, Other (Normal bilateral lower extremity patellar and ankle jerk reflexes. Normal great toe extension bilaterally. no saddle anesthesia) Results - Vitals Vitals: Vital Signs - 24 hr 03/17/21 03/17/21 08:53 10:02 Temperature 36.0 C L Heart Rate 79 79 Respiratory 20 16 Rate Blood Pressure 152/99 H 161/91 H O2 Saturation 98 96 Oxygen O2 Source Room air PD MEDICAL DECISION MAKING - ED course Complexity details: re-evaluated patient, considered differential, d/w patient ED course: Patient with what appears to be muscle spasm. Will place on anti-inflammatories and muscle relaxants for home. No evidence of cauda equina, epidural abscess. No indication for imaging. Normal neurological exam. Patient counseled regarding signs and symptoms for which I believe and urgent re-evaluation would be necessary. Patient with good understanding of and agreement to plan and is comfortable going home at this time This document was made in part using voice recognition software. While efforts are made to proofread this document, sound alike and grammatical errors may occur. Departure - Departure Disposition: 01 Home, Self Care Clinical Impression: Back spasm Condition: Good Instructions: ED Low Back Pain Injury Follow-Up: your,doctor in 1 week [Other] Prescriptions: Meloxicam [Mobic] 15 mg PO DAILY PRN #20 tablet PRN Reason: pain HYDROcod/ACETAM 5/325 [[place] 5/325] 1 - 2 ea PO Q6H PRN #14 tablet PRN Reason: Pain methocarbamoL [Robaxin] 500 mg PO Q6H PRN #20 tablet PRN Reason: muscle spasm Comments: Your prescriptions were sent to [facility] in [place]. Use the medications as prescribed. Continue to gently stretch your back. Return if you worsen. I am prescribing a short course of narcotic pain medication for you. These are potentially dangerous and addictive medications that should be used carefully. These medications may constipate you. Take an [id number] stool softener (docusate) twice daily with plenty of water while taking these medications. If you go 24 hours without a bowel movement, take [id number] miralax, per package instructions. Do not drink or drive while taking these medications. If you received narcotic or sedating medications while in the emergency department, do not drive for 24 hours. Store this medication in a safe, secure place and out of reach of children. It is a violation of federal law to give or sell this medication to another person or to use in a manner other than prescribed. The ED will not refill narcotic prescriptions, including prescriptions lost or stolen. To dispose of unwanted medications: 1. [facility] [address] in [place] has a medication drop box. They accept prescription medications (in pill form) Tuesday through Tuesday 9:00 a.m. to 5:00 p.m. 2. [facility] accepts prescription medications (in pill form only) for disposal year round. Call for more information. 3. Contact the [facility] for the next [facility] sponsored prescription drug collection event. , [phone], or [phone]; Forms: Activity restrictions Discharge Date/Time: 03/17/21 10:10
[2021-03-17] MEDS: methocarbamoL 500 MG TABLET PO STA (09:19)
[2021-03-17] MEDS: KETOROLAC 60 MG/2 ML VIAL IM STA (09:19)
[2021-03-17] MEDS: HYDROcod/ACETAM 5/325 MG TABLET PO STA (09:19)
[2021-03-17] MEDS: DEXAMETHASONE 10 MG/ML VIAL PO STA (09:35)
[2021-03-17] MEDS: CHERRY SYRUP 10 ML UDC PO ONE (09:35)
[2021-03-17 10:09] VITALS: BP 161/91
== END 2021-03-17 10:10 | disposition home or self-care (01) ==
LOC: ED 08:44
DX: M62.830 Muscle spasm of back (principal)
CPT/HCPCS: 96372; 99283; A9270

== ENCOUNTER 2021-06-30 18:29 | Outpatient (CLI) | payer OTHER ==
[2021-06-30 20:38] LABS: BASOPHILS # (AUTO) 0.1 10^3/uL (0.0-0.1); BASOPHILS % (AUTO) 0.8 %; EOSINOPHILS # (AUTO) 0.3 10^3/uL (0.0-0.7); HCT - HEMATOCRIT 42.8 % (42.0-52.0); HGB - HEMOGLOBIN 14.6 g/dL (14.0-18.0); LYMPHOCYTES # (AUTO) 3.4 10^3/uL (1.5-3.5); MEAN CORPUSCULAR HEMOGLOBIN 30.4 pg (27.0-31.0); MEAN CORPUSCULAR HGB CONC 34.1 g/dL (32.0-36.0); MEAN PLATELET VOLUME 10.4 fL (7.4-11.4); MONOCYTES # (AUTO) 0.6 10^3/uL (0.0-1.0); MONOCYTES % (AUTO) 7.2 %; NEUTROPHILS # (AUTO) 4.4 10^3/uL (1.5-6.6); NEUTROPHILS % (AUTO) 49.8 %; PLT - PLATELET COUNT 296 10^3/uL (130-450); RED BLOOD COUNT 4.81 10^6/uL (4.70-6.10); RED CELL DISTRIBUTION WIDTH 12.9 % (12.0-15.0); WHITE BLOOD COUNT 8.8 x10^3/uL (4.8-10.8)
[2021-06-30 20:55] LABS: ALBUMIN 4.5 g/dL (3.2-5.5); ALBUMIN/GLOBULIN RATIO 1.5 (1.0-2.2); ALKALINE PHOSPHATASE 53 IU/L (42-121); ALT ALANINE AMINOTRANSFERASE 37 IU/L (10-60); AST ASPARTATE AMINOTRANSFERASE 31 IU/L (10-42); BILIRUBIN,TOTAL 0.9 mg/dL (0.2-1.0); BUN - BLOOD UREA NITROGEN 20 mg/dL (6-20); CALCIUM 8.9 mg/dL (8.5-10.3); CARBON DIOXIDE - CO2 23 mmol/L (21-32); CHLORIDE 103 mmol/L (101-111); CHOLESTEROL 192 mg/dL; GFR - MDRD 80 (>89); GLUCOSE 112 mg/dL (70-100); HDL CHOLESTEROL 32 mg/dL; LDL CHOLESTEROL,CALCULATED 135 mg/dL; LDL/HDL RATIO 4.2 (<3.6); POTASSIUM 3.7 mmol/L (3.5-5.0); SODIUM 137 mmol/L (135-145); TOTAL PROTEIN 7.5 g/dL (6.7-8.2); TRIGLYCERIDES 127 mg/dL; VLDL CHOLESTEROL 25 mg/dL
[2021-06-30 21:06] LABS: THYROID STIMULATING HORMONE 1.64 uIU/mL (0.34-5.60)
[2021-07-02 11:08] LABS: ESTIMATED AVERAGE GLUCOSE 151 mg/dL (70-100); HEMOGLOBIN A1c% 6.9 % (4.27-6.07)
== END 2021-06-30 18:30 | disposition home or self-care (01) ==
LOC: LAB.N 18:29
PROVIDERS: ATTEND Nurse Practitioner
DX: E78.5 Hyperlipidemia, unspecified (principal); N52.9 Male erectile dysfunction, unspecified; R53.83 Other fatigue; E66.9 Obesity, unspecified
CPT/HCPCS: 36415; 80053; 80061; 83036; 83721; 84153; 84443; 85025

== ENCOUNTER 2022-08-05 07:50 | Outpatient (CLI) | payer OTHER ==
[2022-08-05 08:36] LABS: ALBUMIN 4.3 g/dL (3.2-5.5); ALBUMIN/GLOBULIN RATIO 1.4 (1.0-2.2); ALKALINE PHOSPHATASE 60 IU/L (42-121); ALT ALANINE AMINOTRANSFERASE 28 IU/L (10-60); AST ASPARTATE AMINOTRANSFERASE 20 IU/L (10-42); BILIRUBIN,TOTAL 0.8 mg/dL (0.2-1.0); BUN - BLOOD UREA NITROGEN 16 mg/dL (6-20); CALCIUM 8.6 mg/dL (8.5-10.3); CARBON DIOXIDE - CO2 26 mmol/L (21-32); CHLORIDE 106 mmol/L (101-111); CHOL/HDL RATIO 4.9 (<5.0); CHOLESTEROL 206 mg/dL; CREATININE 0.8 mg/dL (0.6-1.2); GFR - MDRD 104 (>89); GLUCOSE 175 mg/dL (70-100); HDL CHOLESTEROL 42 mg/dL; LDL CHOLESTEROL,CALCULATED 137 mg/dL; LDL/HDL RATIO 3.3 (<3.6); POTASSIUM 3.9 mmol/L (3.5-5.0); SODIUM 138 mmol/L (135-145); TOTAL PROTEIN 7.3 g/dL (6.7-8.2); TRIGLYCERIDES 136 mg/dL; VLDL CHOLESTEROL 27 mg/dL
[2022-08-05 08:47] LABS: FREE T4 (FREE THYROXINE) 0.73 ng/dL (0.58-1.64); THYROID STIMULATING HORMONE 1.67 uIU/mL (0.34-5.60)
[2022-08-05 08:52] LABS: FERRITIN 16.4 ng/mL (23.9-336.2)
[2022-08-05 08:53] LABS: PROLACTIN 8.54 ng/mL
[2022-08-05 09:14] LABS: FOLLICLE STIMULATING HORMONE 6.74 mIU/mL
[2022-08-05 09:15] LABS: LUTEINIZING HORMONE 3.33 mIU/mL
[2022-08-05 14:49] LABS: % IRON SATURATION 36 % (20-50); IRON 129 ug/dL (45-182); TOTAL IRON BINDING CAPACITY 356 ug/dL (250-450); TRANSFERRIN 254 mg/dL (180-329)
[2022-08-06 07:10] LABS: AFP SERUM TUMOR MARKER 2.3 ng/mL (0.0-6.9)
[2022-08-06 07:21] LABS: CREATININE,URINE 93.7 mg/dL; MICROALBUM/CREATININE RATIO,UR 4.3 ug/mg (<30.0); MICROALBUMIN,URINE 0.4 mg/dL (0-300.0)
[2022-08-07 19:07] LABS: FREE TESTOSTERONE(DIRECT) 7.7 pg/mL (6.8-21.5)
== END 2022-08-05 07:51 | disposition home or self-care (01) ==
LOC: LAB 07:50
PROVIDERS: ATTEND Student in an Organized Health Care Education/Training Program
DX: E11.69 Type 2 diabetes mellitus with other specified complication (principal)
CPT/HCPCS: 36415; 80053; 80061; 81599; 82043; 82105; 82570; 82627; 82728; 83001; 83002; 83540; 83721; 84146; 84270; 84402; 84403; 84439; 84443; 84466; 84702

== ENCOUNTER 2022-12-18 23:14 | Outpatient (CLI) | payer OTHER | END 2022-12-18 23:15 | disposition critical access hospital (66) | LOC: EMS 23:14 | DX: S60.312A Abrasion of left thumb, initial encounter (principal); S80.219A Abrasion, unspecified knee, initial encounter; M79.604 Pain in right leg; V20.49XA Other motorcycle driver injured in collision with pedestrian or animal in traffic accident, initial encounter; Y93.55 Activity, bike riding; Y92.413 State road as the place of occurrence of the external cause | CPT/HCPCS: A0425; A0429 ==

== ENCOUNTER 2022-12-18 23:38 | Emergency (ER) | payer OTHER ==
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
[2022-12-19 03:46] VITALS: BP 125/84
[2022-12-19 04:13] VITALS: O2SAT 96
== END 2022-12-19 04:05 | disposition home or self-care (01) ==
LOC: EDUNIT# → ED 23:38
DX: S80.212A Abrasion, left knee, initial encounter (principal); V20.49XA Other motorcycle driver injured in collision with pedestrian or animal in traffic accident, initial encounter; Y93.55 Activity, bike riding; Y92.413 State road as the place of occurrence of the external cause
CPT/HCPCS: 99283; 99284

== ENCOUNTER 2023-09-13 09:07 | Emergency (ER) | payer SELFPAY ==
[2023-09-13 09:36] VITALS: O2SAT 97
--- NOTE | 2023-09-13 10:30 | ED Physician Documentation ---
PD HPI SKIN - Stated complaint Stated Complaint: RT ALICEA BUMP - Chief complaint Chief Complaint: Wound - History obtained from History obtained from: Patient - History of Present Illness Timing - onset: How many weeks ago (2-3) Timing - duration: Weeks Timing - details: Gradual onset, Still present (increased notably the past 2-3 days.) Location: RLE (anterior lower leg) Quality / character: Painful, Discolored, Swelling. No: Vesicular, Draining Associated symptoms: No: Fever, Myalgias Similar symptoms before: Has not had sx before Review of Systems Constitutional: denies: Fever, Chills Neurologic: denies: Focal weakness, Numbness PD PAST MEDICAL HISTORY - Past Medical History Past Medical History: Yes Cardiovascular: High cholesterol Respiratory: None Neuro: Migraines Endocrine/Autoimmune: Type 2 diabetes GI: Other : None HEENT: Other Psych: Depression Musculoskeletal: None Derm: None - Past Surgical History Past Surgical History: Yes General: Cholecystectomy, Colonoscopy, EGD - Present Medications Home Medications: Ambulatory Orders Medication Instructions Recorded Confirmed Doxycycline Hyclate 100 mg PO BID 7 Days #14 cap 09/13/23 Ibuprofen [Motrin] 1 tablet PO Q8H PRN 09/13/23 09/13/23 Ibuprofen [Motrin] 1 tablet PO Q8H PRN #30 tablet 09/13/23 Mupirocin 2% Oint [Bactroban 2% 1 applic TOP TID #15 gm 09/13/23 Oint] - Allergies Allergies/Adverse Reactions: Allergies Allergy/AdvReac Type Severity Reaction Status Date / Time No Known Drug Allergies Allergy Verified 09/13/23 09:22 - Social History Does the pt smoke?: No Smoking Status: Never smoker Does the pt drink ETOH?: Yes Does the pt have substance abuse?: No - Immunizations Immunizations are current?: Yes - POLST Patient has POLST: No PD ED PE NORMAL - Vitals Vital signs reviewed: Yes - General General: Alert and oriented X 3, No acute distress, Well developed/nourished - Back Back: No CVA TTP - Derm Derm: Normal color, Warm and dry, Other (Rounded area of redness swelling and tenderness with warmth over the right anterior lower leg about 3 cm in diameter. There is softness in the area but no fluctuance per se. The roof of the area is slightly lifted but not blistered per se. Surrounding that is redness warmth and mild swelling prox) Results - Vitals Vitals: Vital Signs - 24 hr 09/13/23 09/13/23 09:23 12:01 Temperature 36.2 C L 36.2 C L Heart Rate 84 86 Respiratory 16 20 Rate Blood Pressure 133/90 H 149/96 H O2 Saturation 97 97 Oxygen O2 Source Room air PD Medical Decision Making - ED course Complexity details: considered differential (Topical L ET was applied to the area and then a #11 scalpel was used to freddie the surface of the skin. No purulence came out and no fluid but just couple drops of blood. I did culture it anyway.), d/w patient ED course: The patient has had a small sore on the anterior right lower leg for 2 to 3 weeks. He thought it was a bug bite or such. It had been persistent in the area and now over the last 2 to 3 days has gotten significantly red warm and swollen and very tender. Presume is secondary infection or correction infection of a underlying lesion. No abnormality of the skin such as moles etc. There was perhaps some fluctuance feeling in the area but small incision did not produce any fluid. Empirically will treat as staph with doxycycline and mupirocin. Departure - Departure Disposition: 01 Home, Self Care Clinical Impression: Abscess of right lower leg Condition: Stable Record reviewed to determine appropriate education?: Yes Instructions: ED Staph Infec Abx Tx Only Prescriptions: Mupirocin 2% Oint [Bactroban 2% Oint] 1 applic TOP TID #15 gm Doxycycline Hyclate 100 mg PO BID 7 Days #14 cap Ibuprofen [Motrin] 1 tablet PO Q8H PRN #30 tablet PRN Reason: PAIN &/OR FEVER Comments: There was not any pus coming out from the wound with the incision. There is obviously infection in the tissue with the swelling tenderness and warmth. You can use warm compresses to improve blood flow to the area and help fight off infection and try to promote drainage. Doxycycline antibiotic twice daily for the next week and mupirocin topical antibiotic to 3 times daily to the area. Ibuprofen 800 mg 3 times a day for pains. Add Tylenol every 4-6 hours if need ed. We did do a culture off of the wound area. Will see if it has any growth of bacteria. This will result in a couple of days and will call if we need to change the antibiotic choice based on that. I would anticipate improvement over the next few days considerably with the antibiotics etc. Recheck if not improving well. It should be resolved over 5 to 7 days. I sent your prescription to the [facility] pharmacy in [place]. Forms: PCP List, Activity restrictions Discharge Date/Time: 09/13/23 12:02
[2023-09-13] MEDS: IBUPROFEN 800 MG TABLET PO STA (10:59)
[2023-09-13] MEDS: DOXYCYCLINE 100 MG TABLET PO STA (10:59)
[2023-09-13] MEDS: LIDOCAINE-EPINEPH-TETRACAINE 3 ML SYRINGE TOP STA (10:59)
[2023-09-13] MEDS: ACETAMINOPHEN 500 MG TABLET PO STA (11:00)
[2023-09-13 12:06] VITALS: BP 149/96
== END 2023-09-13 12:02 | disposition home or self-care (01) ==
LOC: ED 09:07
DX: L02.415 Cutaneous abscess of right lower limb (principal); E11.9 Type 2 diabetes mellitus without complications
CPT/HCPCS: 10060; 87070; 87205; 99283; A9270